=== PATIENT | male | born 1935 | race Caucasian/White ===

== ENCOUNTER 2018-12-29 13:27 | Emergency (ER) | payer MEDICARE ==
[2018-12-29] MEDS ORDERED: Ibuprofen 800 MG TAB ONE (13:48)
[2018-12-29] MEDS ORDERED: HYDROcodone/Acetaminophen 5/325 mg Tablet ONE (13:48)
[2018-12-29 14:17] LABS: #Basophils 0.1 thou/uL (0.0-0.2); #Lymphocytes 1.5 thou/uL (1.20-3.40); #Monocytes 0.7 thou/uL (0.11-0.59); #Neutrophils 4.5 thou/uL (1.40-6.50); %Basophils 1.2 % (0.0-1.0); %Eosinophils 0.7 % (0.0-10.0); %Lymphocytes 21.8 % (21.0-51.0); %Neutrophils 66.2 % (42.0-75.0); Hemoglobin 8.8 g/dL (14.0-18.0); Mean Corpuscular HGB CONC 30.4 g/dL (32.0-36.0); Mean Corpuscular Hemoglobin 26.2 pg (27.0-31.0); Mean Corpuscular Volume 86.3 fL (78.0-98.0); Mean Platelet Volume 7.4 fL (7.4-10.4); Platelet Count 137 thou/uL (130-400); RBC Distribution Width 17.3 % (11.5-14.5); Red Blood Cell (RBC) Count 3.38 mill/uL (4.70-6.10); White Blood Cell (WBC) Count 6.7 thou/uL (4.8-10.8)
[2018-12-29 14:34] LABS: ALT (SGPT) 23 U/L (8-55); AST (SGOT) 28 U/L (5-34); Albumin 3.7 g/dL (3.4-4.8); Alkaline Phosphatase 61 U/L (40-150); Anion Gap 15 mmol/L (10-20); BUN (Urea Nitrogen) 20 mg/dL (8.4-25.7); Bilirubin, Total 0.8 mg/dL (0.2-1.2); Calc. Creatinine Clearance 0 mL/min (70-130); Calcium 8.9 mg/dL (7.8-10.44); Carbon Dioxide 21 mmol/L (23-31); Chloride 106 mmol/L (98-107); Estimated GFR-MDRD Greater than 90; Globulin 3.5 g/dL (2.4-3.5); Glucose 91 mg/dL (83-110); Potassium 3.7 mmol/L (3.5-5.1); Protein, Total 7.2 g/dL (5.8-8.1); Sodium 138 mmol/L (136-145)
--- NOTE | 2018-12-29 15:39 | RAD ---
RIGHT HIP 2 VIEWS: Date: 12/29/18 The sensitivity of the study is quite low due to the portable technique and overlying soft tissues. T here does appear to be a subcapital fracture of the hip. The femoral head appears in place. See CT re port to follow. The intertrochanteric region seems normal. IMPRESSION: Probable subcapital fracture of the hip. POS: HOME
--- NOTE | 2018-12-29 15:44 | CT ---
CT OF THE PELVIS WITHOUT CONTRAST: 12/29/[address] of the pelvis was done without contrast for evaluation after a fall. Axial slices were acqu ired, then coronal and sagittal constructions were done. There is a subcapital fracture of the right hip that extends into the neck. The density of bone in th e region is somewhat mottled, but I am not at this point convinced that it is a pathological fracture beyond there being prominent osteoporosis here. The femoral head shows no dislocation. The trochante ivy region was unremarkable. The acetabulum appears intact. The remainder of the bony pelvis showed n o acute fracture. The SI joints were symmetrical. The sacrum appears intact. A left hip arthroplasty was noted. Other findings on this study is severe calcification of the right common iliac artery that nearly occ ludes the lumen. Additionally, there is multilevel spinal stenosis and degenerative disc disease of a severe nature. At L5-S1, there is a lateral bulge of the disc which likely causes neural impingement upon both the right L5 root and possibly the right S1 root. IMPRESSION: 1. Subcapital fracture of the right hip without dislocation. Some mottled sclerosis in the area, but currently I am not convinced of a pathologic fracture beyond there being osteoporosis in the reg ion. Further followup might be required. 2. 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 3. Multilevel spinal stenosis and degenerative disc disease with a right paracentral and lateral bulge of the L5-S1 disc disease. This likely causes neural impingement. Findings discussed with Dr. Borges at 1433 on 12/29/18. POS: HOME
== END 2018-12-29 16:32 | disposition short-term general hospital (02) ==
LOC: BURERS 13:27
DX: S72.011A Unspecified intracapsular fracture of right femur, initial encounter for closed fracture (principal); I10 Essential (primary) hypertension; F17.220 Nicotine dependence, chewing tobacco, uncomplicated; Z79.899 Other long term (current) drug therapy; Z79.82 Long term (current) use of aspirin; W19.XXXA Unspecified fall, initial encounter
CPT/HCPCS: 72192; 80053; 85025; 94760

== ENCOUNTER 2019-01-02 12:34 | Inpatient (IN) | payer MEDICARE ==
[2019-01-02] MEDS ORDERED: Acetaminophen 325 MG TAB PO SCH ×2 (18:00→20:30)
[2019-01-02] MEDS: Aspirin 81 mg Enteric Coated Tablet PO SCH (20:12)
[2019-01-02] MEDS: Senokot S 8.6-50 MG TAB PO SCH (20:12)
[2019-01-02] MEDS: Carvedilol 12.5 MG TAB PO SCH (20:13)
[2019-01-02] MEDS ORDERED: Prevnar 13-Val Conj/PF 0.5 ML SYRINGE IM ONE (21:00)
[2019-01-03] MEDS: Acetaminophen 325 MG TAB PO SCH ×4 (00:05→17:45)
[2019-01-03 04:51] LABS: Anion Gap 13 mmol/L (10-20); BUN (Urea Nitrogen) 12 mg/dL (8.4-25.7); Calc. Creatinine Clearance 87 mL/min (70-130); Calcium 8.7 mg/dL (7.8-10.44); Carbon Dioxide 24 mmol/L (23-31); Chloride 106 mmol/L (98-107); Estimated GFR-MDRD Greater than 90; Glucose 95 mg/dL (83-110); Potassium 3.7 mmol/L (3.5-5.1); Sodium 139 mmol/L (136-145)
[2019-01-03 05:39] LABS: #Eosinphils 0.1 thou/uL (0.0-0.7); #Monocytes 0.5 thou/uL (0.11-0.59); #Neutrophils 4.6 thou/uL (1.40-6.50); %Basophils 0.3 % (0.0-1.0); %Eosinophils 0.9 % (0.0-10.0); %Lymphocytes 16.1 % (21.0-51.0); %Monocytes 8.5 % (0.0-10.0); %Neutrophils 74.3 % (42.0-75.0); Anisocytosis MODERATE=16-30 cells (100X) (0-5/hpf); Hemoglobin 7.5 g/dL (14.0-18.0); MDiff Complete? YES; Mean Corpuscular HGB CONC 29.9 g/dL (32.0-36.0); Mean Corpuscular Hemoglobin 25.4 pg (27.0-31.0); Mean Platelet Volume 7.4 fL (7.4-10.4); Platelet Count 126 thou/uL (130-400); Platelet Morphology Comment Appears Decreased; Polychromasia SLIGHT = 2-3 cells (100X) (0-2/hpf); Red Blood Cell (RBC) Count 2.94 mill/uL (4.70-6.10); Target Cells SLIGHT = 2-5 cells (100X) (0-1/hpf); White Blood Cell (WBC) Count 6.2 thou/uL (4.8-10.8)
[2019-01-03] MEDS ORDERED: Non-Formulary Item 1 EACH (Carvedilol [Coreg] 12.5 MG) PO SCH (08:00)
[2019-01-03] MEDS: Carvedilol 12.5 MG TAB PO SCH ×2 (08:32→21:30)
[2019-01-03] MEDS: Ferrous Sulfate 325 MG TAB PO SCH ×2 (08:32→17:45)
[2019-01-03] MEDS: Polyethylene Glycol 3350 17 GM Packet PO SCH (08:32)
[2019-01-03] MEDS: Ascorbic Acid 500 mg Chewable Tablet PO SCH ×2 (08:32→17:45)
[2019-01-03] MEDS: Senokot S 8.6-50 MG TAB PO SCH ×2 (08:32→21:31)
[2019-01-03] MEDS: Aspirin 81 mg Enteric Coated Tablet PO SCH ×2 (08:32→21:31)
[2019-01-04] MEDS ORDERED: Acetaminophen 325 MG TAB ONE ×5 (00:12→11:52)
[2019-01-04] MEDS: Acetaminophen 325 MG TAB PO SCH ×4 (00:15→16:49)
[2019-01-04] MEDS: Polyethylene Glycol 3350 17 GM Packet PO SCH (08:30)
[2019-01-04] MEDS: Senokot S 8.6-50 MG TAB PO SCH ×2 (08:30→21:47)
[2019-01-04] MEDS: Aspirin 81 mg Enteric Coated Tablet PO SCH ×2 (08:30→21:47)
[2019-01-04] MEDS: Ferrous Sulfate 325 MG TAB PO SCH ×2 (08:31→16:49)
[2019-01-04] MEDS: Ascorbic Acid 500 mg Chewable Tablet PO SCH ×2 (08:31→16:49)
[2019-01-04] MEDS: Carvedilol 12.5 MG TAB PO SCH ×2 (08:31→21:47)
[2019-01-05] MEDS: Acetaminophen 325 MG TAB PO SCH ×5 (00:17→23:49)
[2019-01-05] MEDS: Carvedilol 12.5 MG TAB PO SCH ×2 (08:21→20:02)
[2019-01-05] MEDS: Aspirin 81 mg Enteric Coated Tablet PO SCH ×2 (08:21→20:02)
[2019-01-05] MEDS: Polyethylene Glycol 3350 17 GM Packet PO SCH (08:21)
[2019-01-05] MEDS: Senokot S 8.6-50 MG TAB PO SCH ×2 (08:22→20:02)
[2019-01-05] MEDS: Ferrous Sulfate 325 MG TAB PO SCH ×2 (08:22→17:39)
[2019-01-05] MEDS: Ascorbic Acid 500 mg Chewable Tablet PO SCH ×2 (08:22→17:40)
[2019-01-06] MEDS: Acetaminophen 325 MG TAB PO SCH ×4 (06:02→23:57)
[2019-01-06 08:32] LABS: #Basophils 0.1 thou/uL (0.0-0.2); #Lymphocytes 1.2 thou/uL (1.20-3.40); #Monocytes 0.4 thou/uL (0.11-0.59); #Neutrophils 4.6 thou/uL (1.40-6.50); %Basophils 0.8 % (0.0-1.0); %Eosinophils 0.5 % (0.0-10.0); %Lymphocytes 18.9 % (21.0-51.0); %Monocytes 6.8 % (0.0-10.0); %Neutrophils 72.9 % (42.0-75.0); Hemoglobin 7.9 g/dL (14.0-18.0); Hypochromia MODERATE=16-30 cells (100X) (0-5/hpf); MDiff Complete? YES; Macrocytosis MODERATE=16-30 cells (100X) (0-5/hpf); Mean Corpuscular HGB CONC 30.9 g/dL (32.0-36.0); Mean Corpuscular Hemoglobin 26.5 pg (27.0-31.0); Mean Corpuscular Volume 85.7 fL (78.0-98.0); Mean Platelet Volume 7.1 fL (7.4-10.4); Platelet Count 184 thou/uL (130-400); RBC Distribution Width 18.6 % (11.5-14.5); Red Blood Cell (RBC) Count 2.97 mill/uL (4.70-6.10); White Blood Cell (WBC) Count 6.3 thou/uL (4.8-10.8)
[2019-01-06] MEDS: Senokot S 8.6-50 MG TAB PO SCH ×2 (09:03→20:58)
[2019-01-06] MEDS: Aspirin 81 mg Enteric Coated Tablet PO SCH ×2 (09:03→20:53)
[2019-01-06] MEDS: Carvedilol 12.5 MG TAB PO SCH ×2 (09:03→20:58)
[2019-01-06] MEDS: Ferrous Sulfate 325 MG TAB PO SCH ×2 (09:04→17:29)
[2019-01-06] MEDS: Ascorbic Acid 500 mg Chewable Tablet PO SCH ×2 (09:04→17:29)
[2019-01-06] MEDS: Polyethylene Glycol 3350 17 GM Packet PO SCH (09:04)
[2019-01-07] MEDS: Acetaminophen 325 MG TAB PO SCH ×4 (05:35→23:31)
[2019-01-07] MEDS: Aspirin 81 mg Enteric Coated Tablet PO SCH ×2 (08:31→20:41)
[2019-01-07] MEDS: Ascorbic Acid 500 mg Chewable Tablet PO SCH ×2 (08:31→17:02)
[2019-01-07] MEDS: Carvedilol 12.5 MG TAB PO SCH ×2 (08:31→20:42)
[2019-01-07] MEDS: Senokot S 8.6-50 MG TAB PO SCH ×2 (08:31→20:41)
[2019-01-07] MEDS: Polyethylene Glycol 3350 17 GM Packet PO SCH (08:32)
[2019-01-07] MEDS ORDERED: Acetaminophen 325 MG TAB ONE ×3 (12:09→20:38)
[2019-01-08] MEDS ORDERED: Acetaminophen 325 MG TAB ONE (05:08)
[2019-01-08] MEDS: Acetaminophen 325 MG TAB PO SCH ×4 (05:25→23:30)
[2019-01-08] MEDS: Senokot S 8.6-50 MG TAB PO SCH ×2 (08:37→21:03)
[2019-01-08] MEDS: Carvedilol 12.5 MG TAB PO SCH ×2 (08:37→21:03)
[2019-01-08] MEDS: Ascorbic Acid 500 mg Chewable Tablet PO SCH ×2 (08:37→17:18)
[2019-01-08] MEDS: Aspirin 81 mg Enteric Coated Tablet PO SCH ×2 (08:37→21:03)
[2019-01-08] MEDS: Polyethylene Glycol 3350 17 GM Packet PO SCH (08:37)
[2019-01-08] MEDS ORDERED: Ferrous Sulfate 325 MG TAB PO SCH (11:00)
[2019-01-08] MEDS: Ferrous Sulfate 325 MG TAB PO SCH (17:18)
[2019-01-09] MEDS: Acetaminophen 325 MG TAB PO SCH ×3 (06:11→17:25)
[2019-01-09] MEDS: Aspirin 81 mg Enteric Coated Tablet PO SCH ×2 (09:19→20:16)
[2019-01-09] MEDS: Ascorbic Acid 500 mg Chewable Tablet PO SCH ×2 (09:19→17:25)
[2019-01-09] MEDS: Carvedilol 12.5 MG TAB PO SCH ×2 (09:19→20:16)
[2019-01-09] MEDS: Ferrous Sulfate 325 MG TAB PO SCH ×2 (09:19→17:25)
[2019-01-09] MEDS: Polyethylene Glycol 3350 17 GM Packet PO SCH ×2 (09:19→09:21)
[2019-01-09] MEDS: Senokot S 8.6-50 MG TAB PO SCH ×2 (09:21→20:16)
[2019-01-10] MEDS: Acetaminophen 325 MG TAB PO SCH ×5 (00:02→23:56)
[2019-01-10] MEDS: Carvedilol 12.5 MG TAB PO SCH ×2 (08:09→21:11)
[2019-01-10] MEDS: Aspirin 81 mg Enteric Coated Tablet PO SCH ×2 (08:09→21:11)
[2019-01-10] MEDS: Ferrous Sulfate 325 MG TAB PO SCH ×2 (08:09→17:02)
[2019-01-10] MEDS: Ascorbic Acid 500 mg Chewable Tablet PO SCH ×2 (08:09→17:03)
[2019-01-10] MEDS: Polyethylene Glycol 3350 17 GM Packet PO SCH (08:12)
[2019-01-10] MEDS: Senokot S 8.6-50 MG TAB PO SCH ×2 (08:12→21:12)
[2019-01-11] MEDS: Acetaminophen 325 MG TAB PO SCH ×4 (05:48→23:26)
[2019-01-11] MEDS: Polyethylene Glycol 3350 17 GM Packet PO SCH (08:09)
[2019-01-11] MEDS: Ascorbic Acid 500 mg Chewable Tablet PO SCH ×2 (08:09→17:47)
[2019-01-11] MEDS: Aspirin 81 mg Enteric Coated Tablet PO SCH ×2 (08:09→20:45)
[2019-01-11] MEDS: Ferrous Sulfate 325 MG TAB PO SCH ×2 (08:09→17:46)
[2019-01-11] MEDS: Carvedilol 12.5 MG TAB PO SCH ×2 (08:10→20:44)
[2019-01-11] MEDS: Senokot S 8.6-50 MG TAB PO SCH ×2 (08:12→20:45)
[2019-01-12] MEDS: Acetaminophen 325 MG TAB PO SCH ×3 (05:35→17:22)
[2019-01-12] MEDS: Aspirin 81 mg Enteric Coated Tablet PO SCH ×2 (08:22→20:22)
[2019-01-12] MEDS: Ferrous Sulfate 325 MG TAB PO SCH ×2 (08:22→17:18)
[2019-01-12] MEDS: Ascorbic Acid 500 mg Chewable Tablet PO SCH ×2 (08:22→17:21)
[2019-01-12] MEDS: Carvedilol 12.5 MG TAB PO SCH ×2 (08:22→20:22)
[2019-01-12] MEDS: Polyethylene Glycol 3350 17 GM Packet PO SCH (08:24)
[2019-01-12] MEDS: Senokot S 8.6-50 MG TAB PO SCH ×2 (08:24→20:21)
[2019-01-12 18:55] LABS: #Lymphocytes 1.3 thou/uL (1.20-3.40); #Monocytes 0.6 thou/uL (0.11-0.59); %Basophils 0.3 % (0.0-1.0); %Eosinophils 0.5 % (0.0-10.0); %Lymphocytes 18.4 % (21.0-51.0); %Monocytes 8.5 % (0.0-10.0); %Neutrophils 72.3 % (42.0-75.0); Hemoglobin 9.8 g/dL (14.0-18.0); Hypochromia MODERATE=16-30 cells (100X) (0-5/hpf); Large Platelets SLIGHT; MDiff Complete? YES; Macrocytosis SLIGHT = 6-15 cells (100X) (0-5/hpf); Mean Corpuscular HGB CONC 29.9 g/dL (32.0-36.0); Mean Corpuscular Hemoglobin 26.8 pg (27.0-31.0); Mean Corpuscular Volume 89.6 fL (78.0-98.0); Mean Platelet Volume 6.2 fL (7.4-10.4); Microcytosis MODERATE=15-30 cells (100X) (0-5/hpf); Platelet Count 281 thou/uL (130-400); Polychromasia SLIGHT = 2-3 cells (100X) (0-2/hpf); RBC Distribution Width 21.9 % (11.5-14.5); Red Blood Cell (RBC) Count 3.65 mill/uL (4.70-6.10); Target Cells SLIGHT = 2-5 cells (100X) (0-1/hpf); White Blood Cell (WBC) Count 6.9 thou/uL (4.8-10.8)
[2019-01-13] MEDS: Acetaminophen 325 MG TAB PO SCH ×4 (00:42→17:45)
[2019-01-13] MEDS: Ferrous Sulfate 325 MG TAB PO SCH ×2 (09:26→17:45)
[2019-01-13] MEDS: Senokot S 8.6-50 MG TAB PO SCH ×2 (09:26→21:00)
[2019-01-13] MEDS: Aspirin 81 mg Enteric Coated Tablet PO SCH ×2 (09:26→20:59)
[2019-01-13] MEDS: Carvedilol 12.5 MG TAB PO SCH ×2 (09:27→21:00)
[2019-01-13] MEDS: Ascorbic Acid 500 mg Chewable Tablet PO SCH ×2 (09:27→17:45)
[2019-01-13] MEDS: Polyethylene Glycol 3350 17 GM Packet PO SCH (09:27)
[2019-01-14] MEDS: Acetaminophen 325 MG TAB PO SCH ×5 (05:30→23:54)
[2019-01-14] MEDS: Carvedilol 12.5 MG TAB PO SCH ×2 (08:25→20:31)
[2019-01-14] MEDS: Ferrous Sulfate 325 MG TAB PO SCH ×2 (08:25→17:27)
[2019-01-14] MEDS: Ascorbic Acid 500 mg Chewable Tablet PO SCH ×2 (08:26→17:28)
[2019-01-14] MEDS: Aspirin 81 mg Enteric Coated Tablet PO SCH ×2 (08:26→20:31)
[2019-01-14] MEDS: Polyethylene Glycol 3350 17 GM Packet PO SCH (08:26)
[2019-01-14] MEDS: Senokot S 8.6-50 MG TAB PO SCH ×2 (08:27→20:32)
[2019-01-15] MEDS: Acetaminophen 325 MG TAB PO SCH ×3 (06:00→17:24)
[2019-01-15] MEDS: Polyethylene Glycol 3350 17 GM Packet PO SCH (09:47)
[2019-01-15] MEDS: Aspirin 81 mg Enteric Coated Tablet PO SCH ×2 (09:48→21:17)
[2019-01-15] MEDS: Carvedilol 12.5 MG TAB PO SCH ×2 (09:48→21:17)
[2019-01-15] MEDS: Ascorbic Acid 500 mg Chewable Tablet PO SCH ×2 (09:48→17:25)
[2019-01-15] MEDS: Ferrous Sulfate 325 MG TAB PO SCH ×2 (09:48→17:25)
[2019-01-16] MEDS: Acetaminophen 325 MG TAB PO SCH ×5 (00:06→23:34)
[2019-01-16] MEDS: Ferrous Sulfate 325 MG TAB PO SCH ×2 (08:13→18:21)
[2019-01-16] MEDS: Aspirin 81 mg Enteric Coated Tablet PO SCH ×2 (08:14→20:00)
[2019-01-16] MEDS: Ascorbic Acid 500 mg Chewable Tablet PO SCH ×2 (08:14→18:20)
[2019-01-16] MEDS: Carvedilol 12.5 MG TAB PO SCH ×2 (08:15→20:00)
[2019-01-16] MEDS: Polyethylene Glycol 3350 17 GM Packet PO SCH (08:22)
[2019-01-16 18:51] LABS: Clarity Clear (Clear); Leukocyte Negative (Negative); Nitrite Negative (Negative); Specific Gravity, Urine 1.015 (1.005-1.030); pH, Urine 5.5 (5.0-9.0)
[2019-01-16 18:52] LABS: Bilirubin Negative (Negative); Blood, Urine Negative (Negative); Glucose, Urine (Dipstick) Negative (Negative); Protein, Urine (Dipstick) Trace mg/dL (Neg-Trace); Urobilinogen 0.2 mg/dL (0.2-1.0)
[2019-01-16 19:00] LABS: Bacteria/HPF Rare-Few HPF (None Seen); Crystals/HPF None Seen HPF (Negative); Hyaline Casts/LPF NONE SEEN LPF (0-3 Hyaline); Other Casts/LPF None Seen LPF (0-3 Hyaline); Oval Fat Bodies/HPF None Seen HPF (None Seen); RBC/HPF None Seen HPF (0-3); Renal Epithelial None Seen HPF (0-3); Sperm/HPF None Seen HPF (None Seen); Squamous Epithelial None Seen HPF (0-3); Transitional Epithelial NONE SEEN HPF (0-3); Trichomonas/HPF None Seen HPF (None Seen); WBC/HPF 0-3 HPF (0-3); Yeast-All Forms None Seen HPF (None Seen)
[2019-01-16 19:08] LABS: ALT (SGPT) 74 U/L (8-55); AST (SGOT) 87 U/L (5-34); Albumin 2.9 g/dL (3.4-4.8); Alkaline Phosphatase 137 U/L (40-150); Anion Gap 14 mmol/L (10-20); BUN (Urea Nitrogen) 21 mg/dL (8.4-25.7); Bilirubin, Total 0.5 mg/dL (0.2-1.2); Calc. Creatinine Clearance 79 mL/min (70-130); Calcium 8.8 mg/dL (7.8-10.44); Carbon Dioxide 24 mmol/L (23-31); Chloride 100 mmol/L (98-107); Estimated GFR-MDRD Greater than 90; Globulin 3.4 g/dL (2.4-3.5); Glucose 95 mg/dL (83-110); Protein, Total 6.3 g/dL (5.8-8.1); Sodium 133 mmol/L (136-145)
[2019-01-16 19:10] LABS: Band 5 % (5-11); Eosinophils 1 % (0-10); Hemoglobin 10.6 g/dL (14.0-18.0); Hypochromia SLIGHT = 6-15 cells (100X) (0-5/hpf); Lymphocytes 30 % (21-51); MDiff Complete? YES; Macrocytosis SLIGHT = 6-15 cells (100X) (0-5/hpf); Mean Corpuscular HGB CONC 29.2 g/dL (32.0-36.0); Mean Corpuscular Hemoglobin 26.5 pg (27.0-31.0); Mean Corpuscular Volume 90.8 fL (78.0-98.0); Mean Platelet Volume 6.5 fL (7.4-10.4); Microcytosis SLIGHT = 6-15 cells (100X) (0-5/hpf); Monocytes 11 % (0-10); Neutrophil 53 % (42-75); Platelet Count 222 thou/uL (130-400); RBC Distribution Width 21.1 % (11.5-14.5); Red Blood Cell (RBC) Count 4.02 mill/uL (4.70-6.10); Target Cells SLIGHT = 2-5 cells (100X) (0-1/hpf); White Blood Cell (WBC) Count 7.1 thou/uL (4.8-10.8)
--- NOTE | 2019-01-16 22:19 | RAD ---
PORTABLE CHEST 01/16/19 Comparison is made with a 12/29/[address] [facility]. In the meantime there are infiltrative changes beginning in the right lung base that were not present before. A developing pneumonia is presumed. The upper lobes are clear. A little streaking in the lef t mid lung has scarring and was present before. There are no congestive changes or pleural effusions. The heart is mildly enlarged but no different than before. The cardiac pacer remains in place. IMPRESSION: Increasing right basilar infiltration suggestion of a developing pneumonia. POS: HOME
[2019-01-16] MEDS ORDERED: cefTRIAXone\\ROCEPHIN 1 GM in Sodium Chloride 0.9% 100 ML IVPB SCH (23:15)
[2019-01-17] MEDS: Acetaminophen 325 MG TAB PO SCH ×2 (05:24→12:14)
[2019-01-17] MEDS: Polyethylene Glycol 3350 17 GM Packet PO SCH (08:59)
[2019-01-17] MEDS: cefTRIAXone\\ROCEPHIN 1 GM in Sodium Chloride 0.9% 100 ML IVPB SCH (08:59)
[2019-01-17] MEDS: Ascorbic Acid 500 mg Chewable Tablet PO SCH (09:00)
[2019-01-17] MEDS: Aspirin 81 mg Enteric Coated Tablet PO SCH (09:00)
[2019-01-17] MEDS: Ferrous Sulfate 325 MG TAB PO SCH (09:00)
[2019-01-17] MEDS: Carvedilol 12.5 MG TAB PO SCH (09:00)
[2019-01-17] MEDS: Sodium Chloride 0.45% 1,000 ML IV SCH (09:08)
[2019-01-17] MEDS ORDERED: Ascorbic Acid 500 mg Chewable Tablet PO ONE (17:00)
[2019-01-17] MEDS ORDERED: Ferrous Sulfate 325 MG TAB PO ONE (17:00)
[2019-01-17] MEDS ORDERED: Acetaminophen 325 MG TAB PO ONE ×2 (18:00→23:55)
[2019-01-17] MEDS ORDERED: cefTRIAXone\\ROCEPHIN 1 GM VIAL ONE (23:35)
[2019-01-17] MEDS ORDERED: Acetaminophen 325 MG TAB ONE (23:36)
[2019-01-17] MEDS ORDERED: Sodium Chloride 0.9% 100 ML BAG IVPB ONE (23:55)
[2019-01-17] MEDS ORDERED: cefTRIAXone\\ROCEPHIN 1 GM VIAL IVPB ONE (23:55)
[2019-01-18] MEDS ORDERED: Sodium Chloride 0.45% 1,000 ML BAG FS ONE (00:30)
[2019-01-18] MEDS ORDERED: Acetaminophen 325 MG TAB ONE (05:30)
[2019-01-18] MEDS ORDERED: Acetaminophen 325 MG TAB PO ONE ×4 (06:10→23:47)
[2019-01-18] MEDS ORDERED: Ferrous Sulfate 325 MG TAB PO ONE ×2 (08:00→17:00)
[2019-01-18] MEDS ORDERED: Ascorbic Acid 500 mg Chewable Tablet PO ONE ×2 (08:00→17:00)
[2019-01-18] MEDS ORDERED: Aspirin 81 mg Enteric Coated Tablet PO ONE ×2 (09:00→21:55)
[2019-01-18] MEDS ORDERED: cefTRIAXone\\ROCEPHIN 1 GM VIAL FS ONE ×2 (09:00→21:55)
[2019-01-18] MEDS ORDERED: Carvedilol 12.5 MG TAB PO ONE ×2 (09:00→21:55)
[2019-01-18] MEDS ORDERED: Sodium Chloride 0.9% 100 ML BAG FS ONE ×2 (09:00→21:55)
[2019-01-18] MEDS: Acetaminophen 325 MG TAB PO SCH ×2 (23:44→23:47)
[2019-01-19] MEDS: Acetaminophen 325 MG TAB PO SCH ×7 (06:38→23:29)
[2019-01-19] MEDS: Ferrous Sulfate 325 MG TAB PO SCH ×4 (08:29→20:58)
[2019-01-19] MEDS: Polyethylene Glycol 3350 17 GM Packet PO SCH ×2 (08:29→14:46)
[2019-01-19] MEDS: Aspirin 81 mg Enteric Coated Tablet PO SCH ×4 (08:30→21:06)
[2019-01-19] MEDS: Carvedilol 12.5 MG TAB PO SCH ×3 (08:30→20:59)
[2019-01-19] MEDS: Ascorbic Acid 500 mg Chewable Tablet PO SCH ×5 (08:31→20:58)
[2019-01-19] MEDS: cefTRIAXone\\ROCEPHIN 1 GM in Sodium Chloride 0.9% 100 ML IVPB SCH ×5 (08:34→21:06)
--- NOTE | 2019-01-19 20:31 | PRG ---
DATE OF SERVICE: 01/18/2019 SUBJECTIVE: The patient had a fever of 101.7. Last Tuesday, he has not been feeling well for the past couple of days. He denies cough. He denies shortness of breath. His appetite is fair. He is participating well with physical therapy. OBJECTIVE: VITAL SIGNS: Temperature of 97.7, pulse of 65, respiratory rate 20, O2 saturation 94% on room air, and blood pressure 139/67. GENERAL: The patient is alert and oriented x3. Not in respiratory distress. HEENT: Normocephalic, atraumatic. Pupils equal, reactive to light. Negative for tonsillopharyngeal congestion. NECK: Supple. Negative for lymphadenopathy. CHEST AND LUNGS: Symmetrical expansion. Clear to auscultation bilaterally. HEART: Regular rate and rhythm. Negative for murmur. ABDOMEN: Flat, soft, nontender. Normoactive bowel sounds. EXTREMITIES: Negative for edema. Negative for cyanosis. Good range of motion of both upper and lower extremities. Slight limitation on right hip joint. Negative for tenderness. PSYCH: Appropriate affect and demeanor. LABORATORY DATA: CBC; hemoglobin of 10.6, hematocrit of 36.5, WBC of 7.1, and platelet count of 222. CMP; sodium of 133, potassium of 5, chloride of 100, BUN of 21, creatinine of 0.8, GFR of 90, total bilirubin of 0.5, AST of 87, ALT of 74, alkaline phosphatase of 137, albumin of 2.9, and globulin of 3.4. Blood culture x2 negative. Influenza test negative. Urine culture, less than 10,000 mixed skin and enteric alva present. DIAGNOSTIC DATA: Chest x-ray on 01/16/2019, it showed infiltrative changes beginning in the right lung base, developing pneumonia is presumed. Upper lobes are clear. Little streaking noted in the left mid lung has scarring that was present before. No congestive changes or pleural effusion. IMPRESSION: 1. Increasing right basilar infiltrations. Suggestion of developing pneumonia. 2. Hospital-acquired right basilar infiltrates. 3. Right lower extremity weakness, status post right hip arthroplasty. 4. Hypertension. 5. Atrioventricular block with pacemaker. 6. Status post mechanical fall, resulting to a subcapital hip fracture. 7. Osteoporosis. 8. Esophagitis. 9. Gait instability. 10. Tobacco user. PLAN: 1. Continue present IV Rocephin. We will add IV azithromycin. Continue to monitor vital signs and O2 saturation. The patient received adequate fluid hydration due to recent poor appetite. 2. Continue physical and occupational therapy. 3. Anticipate DC to home once he is clinically stable in a few days. 4. executive kitchen manager to address how the patient can be safely discharged to home in a timely manner. Job ID: [id number]
[2019-01-19] MEDS: Azithromycin 500 MG in Sodium Chloride 0.9% 250 ML 250 ML IVPB SCH (21:16)
[2019-01-19] MEDS: Sodium Chloride 0.45% 1,000 ML IV SCH (21:36)
--- NOTE | 2019-01-20 02:18 | HP ---
PRIMARY CARE PHYSICIAN: Dr. Mario Mcrae. CHIEF COMPLAINT: Skilled care with physical therapy, status post right hip arthroplasty. HISTORY OF PRESENT ILLNESS: Mr. Brian Barney is a pleasant 83-year-old gentleman with history of high-degree AV block with pacemaker, anemia, erosive gastritis, and degenerative joint disease. He underwent right hip replacement on 12/30/[address] Buchanan. He did well intraoperatively. However, postoperatively, he developed some anemia and fatigue requiring blood transfusion. The patient had a weak gait, decreased strength and endurance, hence recommendation for detention facility with physical and occupational therapy prior to transitioning to home. Prior to his transfer, the patient was walking about in the hallway with rolling walker. The patient was able to maintain 50% partial weightbearing on right lower extremity. PAST MEDICAL HISTORY: 1. High-degree AV block, status post permanent pacemaker. 2. Osteoporosis. 3. Esophagitis. 4. Degenerative joint disease. 5. Hypertension. 6. Tobacco user. PAST SURGICAL HISTORY: 1. Permanent pacemaker implantation. 2. Right hip arthroplasty. 3. Tonsillectomy. FAMILY HISTORY: Noncontributory. SOCIAL HISTORY: The patient lives with his brother, uses a cane to ambulate. Denies alcohol or illicit drug use. He is a tobacco user. ALLERGIES: NONE. MEDICATIONS: 1. Acetaminophen 650 mg every 6 hours for pain. 2. Aspirin 81 mg b.i.d. 3. Coreg 12.5 mg p.o. b.i.d. 4. DuoNeb every 4 hours p.r.n. for cough and wheezing. REVIEW OF SYSTEMS: GENERAL: Negative for fever. Negative for chills. HEENT: Negative for headaches. Positive for blurred vision. Negative for sore throat. CARDIOVASCULAR: Negative for palpitation. Negative for chest pain. Negative for shortness of breath. RESPIRATORY: Occasional cough. Positive for occasional wheezing. GI: Negative for nausea. Negative for vomiting. Negative for constipation or diarrhea. GENITOURINARY: Negative for dysuria. Negative for hematuria. MUSCULOSKELETAL: Positive for right lower leg weakness and pain secondary to recent surgery. PSYCH: Negative for anxiety. No depression. PHYSICAL EXAMINATION: VITAL SIGNS: Blood pressure of 109/54, temperature 97.9, pulse 62, respirations of 20, O2 saturation 94% on room air. GENERAL: The patient is alert, oriented, not in respiratory distress. HEENT: Normocephalic and atraumatic. Pupils equal and reactive to light. NECK: Supple. Negative for lymphadenopathy. CHEST AND LUNGS: Symmetrical expansion. Clear to auscultation. HEART: Regular rate and rhythm. Negative for murmur. Negative for rubs or gallops. ABDOMEN: Flat, soft, nontender. Normoactive bowel sounds. EXTREMITIES: Positive for right hip surgical incision site, clean, dry, intact. Negative for swelling. Minimal erythema around the incision site. Good range of motion of left lower extremity. PSYCH: Appropriate affect and demeanor. NEUROLOGIC: Cranial nerves 2 through 12 intact. Negative for focal deficits. LABORATORY DATA: Reviewed. ASSESSMENT: 1. Right lower extremity weakness, status post right hip arthroplasty. 2. Hypertension. 3. AV block with pacemaker. 4. Status post mechanical fall resulting to a right subcapital hip fracture. 5. Osteoporosis. 6. Gait instability. 7. Erosive esophagitis. PLAN: The patient will be admitted for skilled with physical and occupational therapy. Prognosis for significant improvement with reasonable time appears good. We will monitor for infection, bleeding, pain management, and side effects of current medication. He will participate with physical and occupational therapy to address strength, range of motion, transfer training, gait transfers, and family training with safety training with progression to home exercises. He will participate with occupational therapy to address ADLs. We will reconcile his hospital medication and adjust dosages prior to his discharge. manager exchange to address how the patient can be safely discharged to home in a timely manner. Anticipated discharge to home in about 2 to 3 weeks. Job ID: [id number]
[2019-01-20] MEDS: Acetaminophen 325 MG TAB PO SCH ×4 (05:57→23:13)
[2019-01-20] MEDS: Ascorbic Acid 500 mg Chewable Tablet PO SCH ×2 (08:06→17:51)
[2019-01-20] MEDS: Ferrous Sulfate 325 MG TAB PO SCH ×2 (08:06→17:52)
[2019-01-20] MEDS: Aspirin 81 mg Enteric Coated Tablet PO SCH ×2 (09:14→21:15)
[2019-01-20] MEDS: Carvedilol 12.5 MG TAB PO SCH ×2 (09:14→21:15)
[2019-01-20] MEDS: Polyethylene Glycol 3350 17 GM Packet PO SCH (09:14)
[2019-01-20] MEDS: cefTRIAXone\\ROCEPHIN 1 GM in Sodium Chloride 0.9% 100 ML IVPB SCH ×2 (09:15→22:22)
[2019-01-20] MEDS: Azithromycin 500 MG in Sodium Chloride 0.9% 250 ML 250 ML IVPB SCH (21:14)
[2019-01-21] MEDS: Acetaminophen 325 MG TAB PO SCH ×4 (05:33→23:43)
[2019-01-21] MEDS: cefTRIAXone\\ROCEPHIN 1 GM in Sodium Chloride 0.9% 100 ML IVPB SCH ×2 (08:24→21:21)
[2019-01-21] MEDS: Ferrous Sulfate 325 MG TAB PO SCH ×2 (08:25→17:20)
[2019-01-21] MEDS: Ascorbic Acid 500 mg Chewable Tablet PO SCH ×2 (08:25→17:21)
[2019-01-21] MEDS: Carvedilol 12.5 MG TAB PO SCH ×2 (08:26→20:10)
[2019-01-21] MEDS: Polyethylene Glycol 3350 17 GM Packet PO SCH (08:26)
[2019-01-21] MEDS: Aspirin 81 mg Enteric Coated Tablet PO SCH ×2 (08:26→20:10)
[2019-01-21] MEDS: Azithromycin 500 MG in Sodium Chloride 0.9% 250 ML 250 ML IVPB SCH (20:09)
[2019-01-22] MEDS: Acetaminophen 325 MG TAB PO SCH ×4 (05:25→23:51)
[2019-01-22] MEDS: cefTRIAXone\\ROCEPHIN 1 GM in Sodium Chloride 0.9% 100 ML IVPB SCH ×2 (09:54→22:03)
[2019-01-22] MEDS: Carvedilol 12.5 MG TAB PO SCH ×2 (09:54→20:56)
[2019-01-22] MEDS: Ascorbic Acid 500 mg Chewable Tablet PO SCH ×2 (09:54→17:45)
[2019-01-22] MEDS: Ferrous Sulfate 325 MG TAB PO SCH ×2 (09:54→17:45)
[2019-01-22] MEDS: Aspirin 81 mg Enteric Coated Tablet PO SCH ×2 (09:54→20:56)
[2019-01-22] MEDS: Polyethylene Glycol 3350 17 GM Packet PO SCH (09:56)
[2019-01-22] MEDS: Azithromycin 500 MG in Sodium Chloride 0.9% 250 ML 250 ML IVPB SCH (20:59)
[2019-01-23] MEDS: Acetaminophen 325 MG TAB PO SCH ×3 (05:42→18:48)
[2019-01-23] MEDS: Ferrous Sulfate 325 MG TAB PO SCH ×2 (08:16→16:55)
[2019-01-23] MEDS: Ascorbic Acid 500 mg Chewable Tablet PO SCH ×2 (08:16→16:55)
[2019-01-23] MEDS: Aspirin 81 mg Enteric Coated Tablet PO SCH ×2 (09:06→21:48)
[2019-01-23] MEDS: Carvedilol 12.5 MG TAB PO SCH ×2 (09:06→21:48)
[2019-01-23] MEDS: cefTRIAXone\\ROCEPHIN 1 GM in Sodium Chloride 0.9% 100 ML IVPB SCH ×2 (09:07→21:47)
[2019-01-23] MEDS: Azithromycin 500 MG in Sodium Chloride 0.9% 250 ML 250 ML IVPB SCH (21:55)
[2019-01-24] MEDS: Acetaminophen 325 MG TAB PO SCH ×4 (00:05→16:44)
[2019-01-24] MEDS: cefTRIAXone\\ROCEPHIN 1 GM in Sodium Chloride 0.9% 100 ML IVPB SCH ×2 (08:35→21:27)
[2019-01-24] MEDS: Polyethylene Glycol 3350 17 GM Packet PO SCH (08:35)
[2019-01-24] MEDS: Ferrous Sulfate 325 MG TAB PO SCH ×2 (08:37→16:44)
[2019-01-24] MEDS: Ascorbic Acid 500 mg Chewable Tablet PO SCH ×2 (08:38→16:45)
[2019-01-24] MEDS: Carvedilol 12.5 MG TAB PO SCH ×2 (08:38→20:08)
[2019-01-24] MEDS: Aspirin 81 mg Enteric Coated Tablet PO SCH ×2 (08:38→20:08)
[2019-01-24] MEDS: Azithromycin 500 MG in Sodium Chloride 0.9% 250 ML 250 ML IVPB SCH (20:04)
[2019-01-25] MEDS: Acetaminophen 325 MG TAB PO SCH ×4 (01:13→17:47)
[2019-01-25] MEDS: Ferrous Sulfate 325 MG TAB PO SCH ×2 (08:52→17:47)
[2019-01-25] MEDS: Ascorbic Acid 500 mg Chewable Tablet PO SCH ×2 (08:52→17:48)
[2019-01-25] MEDS: Polyethylene Glycol 3350 17 GM Packet PO SCH (08:52)
[2019-01-25] MEDS: Carvedilol 12.5 MG TAB PO SCH ×2 (08:52→21:52)
[2019-01-25] MEDS: Aspirin 81 mg Enteric Coated Tablet PO SCH ×2 (08:52→21:52)
[2019-01-25] MEDS: cefTRIAXone\\ROCEPHIN 1 GM in Sodium Chloride 0.9% 100 ML IVPB SCH ×2 (09:41→21:59)
[2019-01-25] MEDS ORDERED: Acetaminophen 325 MG TAB ONE (15:12)
[2019-01-26] MEDS: Acetaminophen 325 MG TAB PO SCH ×4 (00:53→17:04)
[2019-01-26] MEDS: Ferrous Sulfate 325 MG TAB PO SCH ×2 (09:08→17:04)
[2019-01-26] MEDS: Carvedilol 12.5 MG TAB PO SCH ×2 (09:08→20:46)
[2019-01-26] MEDS: Aspirin 81 mg Enteric Coated Tablet PO SCH ×2 (09:08→20:46)
[2019-01-26] MEDS: Ascorbic Acid 500 mg Chewable Tablet PO SCH ×2 (09:08→17:04)
[2019-01-26] MEDS: Polyethylene Glycol 3350 17 GM Packet PO SCH (09:09)
[2019-01-27] MEDS: Acetaminophen 325 MG TAB PO SCH ×4 (00:05→18:04)
[2019-01-27] MEDS: Ferrous Sulfate 325 MG TAB PO SCH ×2 (08:46→18:05)
[2019-01-27] MEDS: Carvedilol 12.5 MG TAB PO SCH ×2 (08:46→20:32)
[2019-01-27] MEDS: Ascorbic Acid 500 mg Chewable Tablet PO SCH ×2 (08:46→18:05)
[2019-01-27] MEDS: Aspirin 81 mg Enteric Coated Tablet PO SCH ×2 (08:46→20:32)
[2019-01-27] MEDS: Polyethylene Glycol 3350 17 GM Packet PO SCH (08:46)
[2019-01-28] MEDS: Acetaminophen 325 MG TAB PO SCH ×4 (00:02→18:14)
[2019-01-28] MEDS: Aspirin 81 mg Enteric Coated Tablet PO SCH ×2 (08:31→20:50)
[2019-01-28] MEDS: Ferrous Sulfate 325 MG TAB PO SCH ×2 (08:31→18:14)
[2019-01-28] MEDS: Carvedilol 12.5 MG TAB PO SCH ×2 (08:31→20:50)
[2019-01-28] MEDS: Ascorbic Acid 500 mg Chewable Tablet PO SCH ×2 (08:31→18:14)
[2019-01-28] MEDS: Polyethylene Glycol 3350 17 GM Packet PO SCH (08:32)
[2019-01-29] MEDS: Acetaminophen 325 MG TAB PO SCH ×4 (06:01→18:22)
[2019-01-29] MEDS: Ascorbic Acid 500 mg Chewable Tablet PO SCH ×2 (08:42→18:23)
[2019-01-29] MEDS: Aspirin 81 mg Enteric Coated Tablet PO SCH ×2 (08:42→21:01)
[2019-01-29] MEDS: Carvedilol 12.5 MG TAB PO SCH ×2 (08:42→21:01)
[2019-01-29] MEDS: Ferrous Sulfate 325 MG TAB PO SCH ×2 (08:42→18:23)
[2019-01-29] MEDS: Polyethylene Glycol 3350 17 GM Packet PO SCH (08:43)
[2019-01-30] MEDS: Acetaminophen 325 MG TAB PO SCH ×4 (00:06→17:00)
[2019-01-30] MEDS: Aspirin 81 mg Enteric Coated Tablet PO SCH ×2 (08:21→20:55)
[2019-01-30] MEDS: Carvedilol 12.5 MG TAB PO SCH ×2 (08:21→20:56)
[2019-01-30] MEDS: Ferrous Sulfate 325 MG TAB PO SCH ×2 (08:21→17:00)
[2019-01-30] MEDS: Ascorbic Acid 500 mg Chewable Tablet PO SCH ×2 (08:21→17:00)
[2019-01-30] MEDS: Polyethylene Glycol 3350 17 GM Packet PO SCH (08:37)
[2019-01-31] MEDS: Acetaminophen 325 MG TAB PO SCH ×4 (00:09→18:12)
[2019-01-31] MEDS: Ascorbic Acid 500 mg Chewable Tablet PO SCH ×2 (08:25→18:12)
[2019-01-31] MEDS: Ferrous Sulfate 325 MG TAB PO SCH ×2 (08:25→18:11)
[2019-01-31] MEDS: Aspirin 81 mg Enteric Coated Tablet PO SCH ×2 (08:25→21:13)
[2019-01-31] MEDS: Carvedilol 12.5 MG TAB PO SCH ×2 (08:26→21:13)
[2019-01-31] MEDS: Polyethylene Glycol 3350 17 GM Packet PO SCH (08:27)
[2019-02-01] MEDS: Acetaminophen 325 MG TAB PO SCH ×5 (00:46→23:54)
[2019-02-01] MEDS: Polyethylene Glycol 3350 17 GM Packet PO SCH (09:42)
[2019-02-01] MEDS: Carvedilol 12.5 MG TAB PO SCH ×2 (09:42→20:52)
[2019-02-01] MEDS: Ascorbic Acid 500 mg Chewable Tablet PO SCH ×2 (09:42→17:11)
[2019-02-01] MEDS: Aspirin 81 mg Enteric Coated Tablet PO SCH ×2 (09:42→20:52)
[2019-02-01] MEDS: Ferrous Sulfate 325 MG TAB PO SCH ×2 (09:42→17:11)
[2019-02-02] MEDS: Acetaminophen 325 MG TAB PO SCH ×4 (06:02→20:45)
[2019-02-02] MEDS: Polyethylene Glycol 3350 17 GM Packet PO SCH (08:38)
[2019-02-02] MEDS: Ferrous Sulfate 325 MG TAB PO SCH ×2 (08:38→16:58)
[2019-02-02] MEDS: Carvedilol 12.5 MG TAB PO SCH ×2 (08:38→20:45)
[2019-02-02] MEDS: Ascorbic Acid 500 mg Chewable Tablet PO SCH ×2 (08:38→16:58)
[2019-02-02] MEDS: Aspirin 81 mg Enteric Coated Tablet PO SCH ×2 (08:38→20:45)
[2019-02-03] MEDS: Ascorbic Acid 500 mg Chewable Tablet PO SCH ×2 (08:38→17:22)
[2019-02-03] MEDS: Ferrous Sulfate 325 MG TAB PO SCH (08:38)
[2019-02-03] MEDS: Aspirin 81 mg Enteric Coated Tablet PO SCH ×2 (08:38→20:38)
[2019-02-03] MEDS: Carvedilol 12.5 MG TAB PO SCH ×2 (08:38→20:39)
[2019-02-03] MEDS: Acetaminophen 325 MG TAB PO SCH ×2 (08:40→20:38)
[2019-02-03] MEDS: Polyethylene Glycol 3350 17 GM Packet PO SCH (08:40)
[2019-02-04] MEDS: Aspirin 81 mg Enteric Coated Tablet PO SCH ×2 (09:25→20:20)
[2019-02-04] MEDS: Carvedilol 12.5 MG TAB PO SCH ×2 (09:25→20:20)
[2019-02-04] MEDS: Ferrous Sulfate 325 MG TAB PO SCH (09:25)
[2019-02-04] MEDS: Polyethylene Glycol 3350 17 GM Packet PO SCH (09:25)
[2019-02-04] MEDS: Ascorbic Acid 500 mg Chewable Tablet PO SCH ×2 (09:25→17:57)
[2019-02-04] MEDS: Acetaminophen 325 MG TAB PO SCH ×2 (09:27→20:20)
[2019-02-05] MEDS: Ascorbic Acid 500 mg Chewable Tablet PO SCH ×2 (08:58→16:52)
[2019-02-05] MEDS: Acetaminophen 325 MG TAB PO SCH ×2 (08:58→20:04)
[2019-02-05] MEDS: Aspirin 81 mg Enteric Coated Tablet PO SCH ×2 (08:58→20:04)
[2019-02-05] MEDS: Carvedilol 12.5 MG TAB PO SCH ×2 (08:58→20:05)
[2019-02-05] MEDS: Ferrous Sulfate 325 MG TAB PO SCH (08:58)
[2019-02-05] MEDS: Polyethylene Glycol 3350 17 GM Packet PO SCH (09:00)
[2019-02-06] MEDS: Ascorbic Acid 500 mg Chewable Tablet PO SCH ×2 (08:39→17:43)
[2019-02-06] MEDS: Acetaminophen 325 MG TAB PO SCH ×2 (08:39→20:35)
[2019-02-06] MEDS: Carvedilol 12.5 MG TAB PO SCH ×2 (08:39→20:35)
[2019-02-06] MEDS: Ferrous Sulfate 325 MG TAB PO SCH (08:39)
[2019-02-06] MEDS: Aspirin 81 mg Enteric Coated Tablet PO SCH ×2 (08:39→20:35)
[2019-02-06] MEDS: Polyethylene Glycol 3350 17 GM Packet PO SCH (09:38)
[2019-02-07] MEDS: Acetaminophen 325 MG TAB PO SCH ×2 (08:37→20:44)
[2019-02-07] MEDS: Aspirin 81 mg Enteric Coated Tablet PO SCH ×2 (08:38→20:43)
[2019-02-07] MEDS: Ferrous Sulfate 325 MG TAB PO SCH (08:38)
[2019-02-07] MEDS: Polyethylene Glycol 3350 17 GM Packet PO SCH (08:38)
[2019-02-07] MEDS: Ascorbic Acid 500 mg Chewable Tablet PO SCH ×2 (08:38→16:33)
[2019-02-07] MEDS: Carvedilol 12.5 MG TAB PO SCH ×2 (08:38→20:44)
[2019-02-08] MEDS: Aspirin 81 mg Enteric Coated Tablet PO SCH ×2 (09:28→20:56)
[2019-02-08] MEDS: Ascorbic Acid 500 mg Chewable Tablet PO SCH ×2 (09:28→18:35)
[2019-02-08] MEDS: Acetaminophen 325 MG TAB PO SCH ×2 (09:28→20:56)
[2019-02-08] MEDS: Ferrous Sulfate 325 MG TAB PO SCH (09:29)
[2019-02-08] MEDS: Carvedilol 12.5 MG TAB PO SCH ×2 (09:29→20:56)
[2019-02-08] MEDS: Polyethylene Glycol 3350 17 GM Packet PO SCH (09:30)
[2019-02-09] MEDS: Acetaminophen 325 MG TAB PO SCH ×2 (08:44→20:44)
[2019-02-09] MEDS: Polyethylene Glycol 3350 17 GM Packet PO SCH (08:44)
[2019-02-09] MEDS: Aspirin 81 mg Enteric Coated Tablet PO SCH ×2 (08:44→20:44)
[2019-02-09] MEDS: Carvedilol 12.5 MG TAB PO SCH ×2 (08:45→20:44)
[2019-02-09] MEDS: Ascorbic Acid 500 mg Chewable Tablet PO SCH ×2 (08:45→16:53)
[2019-02-09] MEDS: Ferrous Sulfate 325 MG TAB PO SCH (08:45)
[2019-02-10] MEDS: Polyethylene Glycol 3350 17 GM Packet PO SCH (08:48)
[2019-02-10] MEDS: Carvedilol 12.5 MG TAB PO SCH ×2 (08:48→20:45)
[2019-02-10] MEDS: Aspirin 81 mg Enteric Coated Tablet PO SCH ×2 (08:49→20:45)
[2019-02-10] MEDS: Ferrous Sulfate 325 MG TAB PO SCH (08:49)
[2019-02-10] MEDS: Acetaminophen 325 MG TAB PO SCH ×2 (08:49→20:45)
[2019-02-10] MEDS: Ascorbic Acid 500 mg Chewable Tablet PO SCH ×2 (08:49→16:46)
[2019-02-11] MEDS: Ascorbic Acid 500 mg Chewable Tablet PO SCH ×2 (08:54→17:43)
[2019-02-11] MEDS: Carvedilol 12.5 MG TAB PO SCH ×2 (08:54→20:27)
[2019-02-11] MEDS: Aspirin 81 mg Enteric Coated Tablet PO SCH ×2 (08:54→20:27)
[2019-02-11] MEDS: Acetaminophen 325 MG TAB PO SCH ×2 (08:55→20:27)
[2019-02-11] MEDS: Ferrous Sulfate 325 MG TAB PO SCH (08:56)
[2019-02-11] MEDS: Polyethylene Glycol 3350 17 GM Packet PO SCH (08:57)
[2019-02-12] MEDS: Acetaminophen 325 MG TAB PO SCH ×2 (07:54→20:15)
[2019-02-12] MEDS: Ferrous Sulfate 325 MG TAB PO SCH (07:54)
[2019-02-12] MEDS: Aspirin 81 mg Enteric Coated Tablet PO SCH ×2 (07:54→20:15)
[2019-02-12] MEDS: Polyethylene Glycol 3350 17 GM Packet PO SCH (07:54)
[2019-02-12] MEDS: Ascorbic Acid 500 mg Chewable Tablet PO SCH ×2 (07:55→17:25)
[2019-02-12] MEDS: Carvedilol 12.5 MG TAB PO SCH ×2 (07:55→20:15)
[2019-02-13] MEDS: Aspirin 81 mg Enteric Coated Tablet PO SCH ×2 (09:17→20:29)
[2019-02-13] MEDS: Carvedilol 12.5 MG TAB PO SCH ×2 (09:17→20:29)
[2019-02-13] MEDS: Acetaminophen 325 MG TAB PO SCH ×2 (09:17→20:29)
[2019-02-13] MEDS: Ascorbic Acid 500 mg Chewable Tablet PO SCH ×2 (09:17→18:24)
[2019-02-13] MEDS: Ferrous Sulfate 325 MG TAB PO SCH (09:17)
[2019-02-13] MEDS: Polyethylene Glycol 3350 17 GM Packet PO SCH (16:07)
[2019-02-14] MEDS: Acetaminophen 325 MG TAB PO SCH ×2 (09:24→20:39)
[2019-02-14] MEDS: Aspirin 81 mg Enteric Coated Tablet PO SCH ×2 (09:24→20:39)
[2019-02-14] MEDS: Ferrous Sulfate 325 MG TAB PO SCH (09:25)
[2019-02-14] MEDS: Ascorbic Acid 500 mg Chewable Tablet PO SCH ×2 (09:25→16:38)
[2019-02-14] MEDS: Polyethylene Glycol 3350 17 GM Packet PO SCH (09:25)
[2019-02-14] MEDS: Carvedilol 12.5 MG TAB PO SCH ×2 (09:25→20:39)
[2019-02-15] MEDS: Ferrous Sulfate 325 MG TAB PO SCH (08:30)
[2019-02-15] MEDS: Ascorbic Acid 500 mg Chewable Tablet PO SCH ×2 (08:30→17:50)
[2019-02-15] MEDS: Aspirin 81 mg Enteric Coated Tablet PO SCH ×2 (09:13→20:21)
[2019-02-15] MEDS: Polyethylene Glycol 3350 17 GM Packet PO SCH (09:14)
[2019-02-15] MEDS: Acetaminophen 325 MG TAB PO SCH ×2 (09:14→20:21)
[2019-02-15] MEDS: Carvedilol 12.5 MG TAB PO SCH ×2 (09:14→20:21)
[2019-02-16] MEDS: Carvedilol 12.5 MG TAB PO SCH ×2 (08:24→20:08)
[2019-02-16] MEDS: Polyethylene Glycol 3350 17 GM Packet PO SCH (08:24)
[2019-02-16] MEDS: Ferrous Sulfate 325 MG TAB PO SCH (08:24)
[2019-02-16] MEDS: Ascorbic Acid 500 mg Chewable Tablet PO SCH ×2 (08:24→17:50)
[2019-02-16] MEDS: Acetaminophen 325 MG TAB PO SCH ×2 (08:24→20:08)
[2019-02-16] MEDS: Aspirin 81 mg Enteric Coated Tablet PO SCH ×2 (08:25→20:08)
[2019-02-17] MEDS: Aspirin 81 mg Enteric Coated Tablet PO SCH ×2 (08:32→20:12)
[2019-02-17] MEDS: Acetaminophen 325 MG TAB PO SCH ×2 (08:32→20:12)
[2019-02-17] MEDS: Ferrous Sulfate 325 MG TAB PO SCH (08:32)
[2019-02-17] MEDS: Carvedilol 12.5 MG TAB PO SCH ×2 (08:32→20:12)
[2019-02-17] MEDS: Ascorbic Acid 500 mg Chewable Tablet PO SCH ×2 (08:32→16:24)
[2019-02-17] MEDS: Polyethylene Glycol 3350 17 GM Packet PO SCH (08:33)
[2019-02-18] MEDS: Polyethylene Glycol 3350 17 GM Packet PO SCH (08:11)
[2019-02-18] MEDS: Ascorbic Acid 500 mg Chewable Tablet PO SCH ×2 (08:11→16:33)
[2019-02-18] MEDS: Acetaminophen 325 MG TAB PO SCH ×2 (08:11→20:54)
[2019-02-18] MEDS: Aspirin 81 mg Enteric Coated Tablet PO SCH ×2 (08:11→20:53)
[2019-02-18] MEDS: Ferrous Sulfate 325 MG TAB PO SCH (08:12)
[2019-02-18] MEDS: Carvedilol 12.5 MG TAB PO SCH ×2 (08:12→20:53)
[2019-02-18 08:24] VITALS: BMI 19.9
--- NOTE | 2019-02-19 00:09 | PRG ---
DATE OF SERVICE: 02/18/2019 SUBJECTIVE: The patient denies any concern, he is on extended stay for physical/occupational therapy. He was supposed to go home 3 weeks ago, but according to the patient, family is trying to remodel/ readjust home setup to meet his needs when he gets discharged. He made the necessary arrangement to stay longer. According to the patient, he has a sick brother with Parkinson's/ dementia, he will need further assistance when he gets discharged. The patient will not be able to travelfor outpatient physical therapy when he gets discharged. OBJECTIVE: VITAL SIGNS: Blood pressure of 124/73, temperature of 98, pulse of 76, RR of 18, O2 saturation 97% on room air. GENERAL: The patient is alert and oriented, not in respiratory distress. HEENT: Normocephalic and atraumatic. Pupils equally reactive to light. NECK: Supple. Negative for lymphadenopathy. CHEST AND LUNGS: Symmetrical expansion. Clear to auscultation. HEART: Regular rate and rhythm. Negative for murmur. ABDOMEN: Flat, soft, nontender. Normoactive bowel sounds. EXTREMITIES: Good range of motion, slightly decreased on the right lower extremity. ASSESSMENT: 1. Right lower extremity weakness, status post right hip arthroplasty. 2. Pneumonia, hospital-acquired, right, resolved. 3. Hypertension. 4. AV block with pacemaker. 5. History of mechanical fall resulting to a subcapital right hip fracture. 6. Osteoporosis. 7. Esophagitis. 8. Gait instability. 9. Tobacco user. PLAN: The patient will be discharged on March 02. Continue all hospital medications. He will need to follow up with Dr. Mcrae within 7 days. Job ID: [id number] [facility]
[2019-02-19] MEDS: Ferrous Sulfate 325 MG TAB PO SCH (08:14)
[2019-02-19] MEDS: Aspirin 81 mg Enteric Coated Tablet PO SCH ×2 (08:15→20:48)
[2019-02-19] MEDS: Acetaminophen 325 MG TAB PO SCH ×2 (08:15→20:48)
[2019-02-19] MEDS: Carvedilol 12.5 MG TAB PO SCH ×2 (08:15→20:48)
[2019-02-19] MEDS: Polyethylene Glycol 3350 17 GM Packet PO SCH (08:15)
[2019-02-19] MEDS: Ascorbic Acid 500 mg Chewable Tablet PO SCH ×2 (15:45→18:24)
[2019-02-20] MEDS: Acetaminophen 325 MG TAB PO SCH ×2 (08:56→20:58)
[2019-02-20] MEDS: Carvedilol 12.5 MG TAB PO SCH ×2 (08:56→20:58)
[2019-02-20] MEDS: Ferrous Sulfate 325 MG TAB PO SCH (08:56)
[2019-02-20] MEDS: Aspirin 81 mg Enteric Coated Tablet PO SCH ×2 (08:56→20:58)
[2019-02-20] MEDS: Polyethylene Glycol 3350 17 GM Packet PO SCH (10:14)
[2019-02-20] MEDS: Ascorbic Acid 500 mg Chewable Tablet PO SCH ×2 (18:55→18:56)
[2019-02-21] MEDS: Acetaminophen 325 MG TAB PO SCH ×2 (08:40→20:32)
[2019-02-21] MEDS: Ferrous Sulfate 325 MG TAB PO SCH (08:40)
[2019-02-21] MEDS: Aspirin 81 mg Enteric Coated Tablet PO SCH ×2 (08:40→20:31)
[2019-02-21] MEDS: Carvedilol 12.5 MG TAB PO SCH ×2 (08:40→20:32)
[2019-02-21] MEDS: Ascorbic Acid 500 mg Chewable Tablet PO SCH ×2 (08:40→17:06)
[2019-02-21] MEDS: Polyethylene Glycol 3350 17 GM Packet PO SCH (08:40)
[2019-02-22] MEDS: Aspirin 81 mg Enteric Coated Tablet PO SCH ×2 (08:48→21:34)
[2019-02-22] MEDS: Ascorbic Acid 500 mg Chewable Tablet PO SCH ×2 (08:49→18:09)
[2019-02-22] MEDS: Acetaminophen 325 MG TAB PO SCH ×2 (08:49→21:34)
[2019-02-22] MEDS: Carvedilol 12.5 MG TAB PO SCH ×2 (08:49→21:34)
[2019-02-22] MEDS: Ferrous Sulfate 325 MG TAB PO SCH (08:49)
[2019-02-22] MEDS: Polyethylene Glycol 3350 17 GM Packet PO SCH (08:50)
[2019-02-23] MEDS: Ascorbic Acid 500 mg Chewable Tablet PO SCH (08:40)
[2019-02-23] MEDS: Carvedilol 12.5 MG TAB PO SCH ×2 (08:40→21:27)
[2019-02-23] MEDS: Ferrous Sulfate 325 MG TAB PO SCH (08:40)
[2019-02-23] MEDS: Aspirin 81 mg Enteric Coated Tablet PO SCH ×2 (08:40→21:27)
[2019-02-23] MEDS: Acetaminophen 325 MG TAB PO SCH ×2 (08:40→21:27)
[2019-02-23] MEDS: Polyethylene Glycol 3350 17 GM Packet PO SCH (08:40)
[2019-02-23 18:17] VITALS: TEMP 97.6
[2019-02-24] MEDS: Ascorbic Acid 500 mg Chewable Tablet PO SCH (08:30)
[2019-02-24] MEDS: Ferrous Sulfate 325 MG TAB PO SCH (08:30)
[2019-02-24] MEDS: Aspirin 81 mg Enteric Coated Tablet PO SCH (09:38)
[2019-02-24] MEDS: Acetaminophen 325 MG TAB PO SCH (09:39)
[2019-02-24] MEDS: Polyethylene Glycol 3350 17 GM Packet PO SCH (09:39)
[2019-02-24] MEDS: Carvedilol 12.5 MG TAB PO SCH (09:39)
[2019-02-24 13:09] VITALS: BP 114/66
--- NOTE | 2019-02-26 08:41 | DIS ---
DATE OF ADMISSION: 01/02/2019 DATE OF DISCHARGE: 02/24/2019 ADMISSION DIAGNOSES: Status post right hip arthroplasty, status post mechanical fall resulting in right subcapital hip fracture, gait instability. SECONDARY DIAGNOSES: Hypertension, AV block with pacemaker, osteoporosis, erosive esophagitis. PROCEDURES: None. HOSPITAL COURSE: An 84-year-old male was admitted to [facility] for skilled care with Physical Therapy and Occupational Therapy status post fall, which resulted in right subcapital hip fracture. The patient underwent right hip replacement on 12/30/[address] Buchanan. Postoperatively, he developed anemia and fatigue, requiring blood transfusion. Secondary to the patient's physical deconditioning, he was transitioned to our facility. The patient was able to successfully work with Physical Therapy and Occupational Therapy with slow, but steady improvement; he has been able to reach set goals to be able to return back to his home setting. There were no significant setbacks during his stay. His pain is well controlled and he is able to ambulate and perform home activities of daily living, thus is appropriate for discharge at this time. DISPOSITION: The patient will be discharged home and follow up with Dr. Buchanan as scheduled, may also follow up with Dr. Mcrae, his primary care provider. DISCHARGE MEDICATIONS: Include: 1. Tylenol 650 mg q.6 hours p.r.n. 2. Aspirin 81 mg b.i.d. 3. Coreg 12.5 mg b.i.d. 4. DuoNeb p.r.n. Job ID: [id number] [facility]
== END 2019-02-24 13:55 | disposition home or self-care (01) | DRG 559 ==
LOC: BURMED 15:00
PROVIDERS: ADMIT Family Medicine; ATTEND Family Medicine
DX: S72.011D Unspecified intracapsular fracture of right femur, subsequent encounter for closed fracture with routine healing (principal); J18.9 Pneumonia, unspecified organism; I44.2 Atrioventricular block, complete; K22.10 Ulcer of esophagus without bleeding; D64.9 Anemia, unspecified; M81.0 Age-related osteoporosis without current pathological fracture; I10 Essential (primary) hypertension; R53.1 Weakness; R26.81 Unsteadiness on feet; F17.200 Nicotine dependence, unspecified, uncomplicated; Z95.0 Presence of cardiac pacemaker; Z90.89 Acquired absence of other organs; Y95 Nosocomial condition; W19.XXXD Unspecified fall, subsequent encounter
CPT/HCPCS: 36415; 71045; 80048; 80053; 81001; 85025; 87040; 87086; 87804; 90471; 90670; G0009; J0456; J0696; J3490; J7050

== ENCOUNTER 2019-06-06 17:47 | Emergency (ER) | payer MEDICARE | END 2019-06-06 18:19 | disposition home or self-care (01) | LOC: BURERS 17:47 | DX: Z04.3 Encounter for examination and observation following other accident (principal); F17.220 Nicotine dependence, chewing tobacco, uncomplicated; I10 Essential (primary) hypertension; Z79.82 Long term (current) use of aspirin; W18.30XA Fall on same level, unspecified, initial encounter | CPT/HCPCS: 99283 ==